=== PATIENT | female | born 1985 | race African-American/Black ===

== ENCOUNTER 2017-04-13 17:32 | Emergency (ER) | END 2017-04-13 19:00 | disposition left against medical advice (07) ==

== ENCOUNTER 2017-05-08 18:44 | Emergency (ER) | END 2017-05-09 01:43 | disposition home or self-care (01) ==

== ENCOUNTER 2017-12-17 11:20 | Emergency (ER) | END 2017-12-17 13:49 | disposition home or self-care (01) ==